=== PATIENT | male | born 1950 | race Caucasian/White ===

== ENCOUNTER 2016-08-13 12:47 | Outpatient (CLI) | payer MEDICARE | END 2016-08-13 12:48 | disposition home or self-care (01) | DX: Z79.4 Long term (current) use of insulin (principal); E11.51 Type 2 diabetes mellitus with diabetic peripheral angiopathy without gangrene; E78.5 Hyperlipidemia, unspecified; I25.10 Atherosclerotic heart disease of native coronary artery without angina pectoris; I10 Essential (primary) hypertension; D64.9 Anemia, unspecified | CPT/HCPCS: 36415; 80053; 80061; 82043; 83036; 85025; G0103 ==

== ENCOUNTER 2017-01-26 12:52 | Outpatient (CLI) | payer MEDICARE | END 2017-01-26 12:53 | disposition short-term general hospital (02) | LOC: EMS 12:52 | PROVIDERS: ATTEND Surgery | DX: K62.5 Hemorrhage of anus and rectum (principal); R53.1 Weakness; R55 Syncope and collapse; R61 Generalized hyperhidrosis | CPT/HCPCS: A0425; A0427 ==

== ENCOUNTER 2017-04-11 13:17 | Outpatient (CLI) | payer MEDICARE ==
[2017-04-11 17:57] LABS: BASOPHILS # (AUTO) 0.1 10^3/uL (0.0-0.1); BASOPHILS % (AUTO) 1.2 %; EOSINOPHILS # (AUTO) 0.2 10^3/uL (0.0-0.7); EOSINOPHILS % (AUTO) 3.1 %; HCT - HEMATOCRIT 44.7 % (42.0-52.0); HGB - HEMOGLOBIN 14.3 g/dL (14.0-18.0); LYMPHOCYTES # (AUTO) 2.1 10^3/uL (1.5-3.5); MEAN CORPUSCULAR HEMOGLOBIN 31.2 pg (27.0-31.0); MEAN CORPUSCULAR VOLUME 97.4 fL (80.0-94.0); MEAN PLATELET VOLUME 8.8 fL (7.4-11.4); MONOCYTES # (AUTO) 0.7 10^3/uL (0.0-1.0); NEUTROPHILS # (AUTO) 3.4 10^3/uL (1.5-6.6); NEUTROPHILS % (AUTO) 52.7 %; RED BLOOD COUNT 4.59 10^6/uL (4.70-6.10); RED CELL DISTRIBUTION WIDTH 14.6 % (12.0-15.0); UNCORRECTED WHITE BLOOD COUNT 6.5 x10^3/uL; WHITE BLOOD COUNT 6.5 x10^3/uL (4.8-10.8)
[2017-04-11 18:22] LABS: BILIRUBIN,TOTAL 0.3 mg/dL (0.2-1.0); BUN - BLOOD UREA NITROGEN 14 mg/dL (6-20); CALCIUM 8.5 mg/dL (8.5-10.3); CARBON DIOXIDE - CO2 31 mmol/L (21-32); CHLORIDE 100 mmol/L (101-111); CHOLESTEROL 203 mg/dL; CREATININE 0.6 mg/dL (0.6-1.2); GFR - MDRD 134 (>89); GLUCOSE 99 mg/dL (70-100); HDL CHOLESTEROL 68 mg/dL; LDL/HDL RATIO 1.7 (<3.6); POTASSIUM 3.9 mmol/L (3.5-5.0); SODIUM 139 mmol/L (135-145); TOTAL PROTEIN 6.9 g/dL (6.7-8.2); TRIGLYCERIDES 83 mg/dL; VLDL CHOLESTEROL 17 mg/dL
[2017-04-11 21:27] LABS: HEMOGLOBIN A1C 0.65 g/dL
== END 2017-04-11 13:18 | disposition home or self-care (01) ==
LOC: LAB.F 13:17
PROVIDERS: ATTEND Family Medicine
DX: E11.51 Type 2 diabetes mellitus with diabetic peripheral angiopathy without gangrene (principal); I25.10 Atherosclerotic heart disease of native coronary artery without angina pectoris; D64.9 Anemia, unspecified; I10 Essential (primary) hypertension
CPT/HCPCS: 36415; 80053; 80061; 83036; 85025

== ENCOUNTER 2017-09-05 08:44 | Outpatient (CLI) | payer MEDICARE ==
[2017-09-05 10:59] LABS: HB2 TOTAL 15.9 g/dL; HEMOGLOBIN A1C 0.77 g/dL; HEMOGLOBIN A1C % 6.6 % (4.6-6.2)
[2017-09-05 11:03] LABS: ALBUMIN 3.5 g/dL (3.2-5.5); ALKALINE PHOSPHATASE 59 IU/L (42-121); ALT ALANINE AMINOTRANSFERASE 22 IU/L (10-60); AST ASPARTATE AMINOTRANSFERASE 22 IU/L (10-42); BILIRUBIN,TOTAL 0.6 mg/dL (0.2-1.0); BUN - BLOOD UREA NITROGEN 13 mg/dL (6-20); CALCIUM 8.5 mg/dL (8.5-10.3); CARBON DIOXIDE - CO2 28 mmol/L (21-32); CHLORIDE 104 mmol/L (101-111); CHOL/HDL RATIO 4.2 (<5.0); CHOLESTEROL 221 mg/dL; CREATININE 0.5 mg/dL (0.6-1.2); GFR - MDRD 165 (>89); GLUCOSE 112 mg/dL (70-100); HDL CHOLESTEROL 53 mg/dL; LDL CHOLESTEROL,CALCULATED 156 mg/dL; LDL/HDL RATIO 2.9 (<3.6); SODIUM 139 mmol/L (135-145); TOTAL PROTEIN 6.9 g/dL (6.7-8.2); VLDL CHOLESTEROL 12 mg/dL
== END 2017-09-05 08:45 | disposition home or self-care (01) ==
LOC: LAB.F 08:44
PROVIDERS: ATTEND Family Medicine
DX: I10 Essential (primary) hypertension (principal); E11.51 Type 2 diabetes mellitus with diabetic peripheral angiopathy without gangrene; E78.5 Hyperlipidemia, unspecified; I25.10 Atherosclerotic heart disease of native coronary artery without angina pectoris
CPT/HCPCS: 36415; 80053; 80061; 83036; 83721

== ENCOUNTER 2019-11-26 00:15 | Emergency (ER) | payer MEDICARE, OTHER ==
[2019-11-26 00:31] VITALS: BP 137/75
--- NOTE | 2019-11-26 01:18 | ED Physician Documentation ---
PD HPI UPPER EXT INJURY - Stated complaint Stated Complaint: R ARM LAC - Chief complaint Chief Complaint: Trauma Hd/Nk - History obtained from History obtained from: Patient - History of Present Illness Location: Right, Forearm Type of injury: Fall Where injury occurred: Home Timing - onset: Enter time (23:00), Today Timing - details: Abrupt onset Pain level max: 4 Pain level now: 4 (back) Improved by: Rest Worsened by: Moving Associated symptoms: No: Weakness, Numbness, Tingling, Swelling, Discolored Contributing factors: Anticoagulated (plavix) Recently seen: Not recently seen - Additonal information Additional information: patient missed the bed when trying to get into bed, struck RUE on side table, causing RUE laceration. he also hit his head on the side table but denies LOC, denies ROBLEDO. Review of Systems Eyes: reports: Reviewed and negative Cardiac: reports: Reviewed and negative Respiratory: reports: Reviewed and negative Skin: reports: Laceration (s) Musculoskeletal: reports: Back pain, Extremity pain Neurologic: reports: Head injury. denies: Generalized weakness, Focal weakness, Numbness, Confused, Altered mental status, Unresponsive, Headache, LOC PD PAST MEDICAL HISTORY - Past Medical History Cardiovascular: Hypertension, High cholesterol, [place] Respiratory: None Endocrine/Autoimmune: Type 2 diabetes GI: GERD : None HEENT: None Psych: Depression Musculoskeletal: Osteoarthritis Derm: None - Past Surgical History Past Surgical History: Yes - Present Medications Home Medications: Ambulatory Orders Medication Instructions Recorded Confirmed Aspirin [Aspir-Low] 81 mg PO DAILY 11/27/15 03/19/16 Carvedilol 6.25 mg PO BID 11/27/15 03/19/16 Ferrous Sulfate [Iron Supplement] 1 tab PO BID 11/27/15 03/19/16 Insulin Glargine,Hum.rec.anlog 26 units SQ DAILY 11/27/15 03/19/16 [Lantus] Naproxen 375 mg PO BID #20 tablet 11/27/15 03/19/16 PARoxetine HCl [Paxil] 40 mg PO DAILY 11/27/15 03/19/16 Zolpidem [Ambien] 10 mg PO QPM 11/27/15 03/19/16 lisinopriL [Lisinopril] 2.5 mg PO DAILY 11/27/15 03/19/16 Azelastine HCl 1 spray JEFF BID 03/19/16 03/19/16 Insulin Regular, Human [Humulin R] 5 - 10 unit SQ DAILY PRN 03/19/16 03/19/16 Oxycodone HCl/Acetaminophen 1 tab PO BID PRN 03/19/16 03/19/16 [Oxycodone-Acetaminophen 5-325] methocarbamoL [Methocarbamol] 500 mg PO Q6H PRN 03/19/16 03/19/16 Nicotine 21 mg Patch [Nicoderm] 1 patch TOP DAILY #14 patch 03/20/16 - Allergies Allergies/Adverse Reactions: Allergies Allergy/AdvReac Type Severity Reaction Status Date / Time yeast, dried [yeast] Allergy Unknown Verified 11/26/19 00:24 - Social History Does the pt smoke?: Yes Smoking Status: Current every day smoker Does the pt drink ETOH?: Yes Does the pt have substance abuse?: No - Immunizations Immunizations are current?: Yes PD ED PE NORMAL - Vitals Vital signs reviewed: Yes - General General: Alert and oriented X 3, No acute distress, Well developed/nourished - HEENT HEENT: Atraumatic, PERRL, EOMI, Moist mucous membranes - Neck Neck: No bony TTP - Cardiac Cardiac: RRR, No murmur - Respiratory Respiratory: No respiratory distress, Clear bilaterally - Abdomen Abdomen: Soft, Non tender - Extremities Extremities: Normal ROM s pain, No edema - Neuro Neuro: Alert and oriented X 3, 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 LTS intact RUE with brisk distal capillary refill and FROM including flex/ext/supination/pronation) LENY UE/Hands Visual: 1 - laceration (8 cm laceration that is contiguous with a distal skin tear which is another 6 cm in length) Results - Vitals Vitals: Oxygen O2 Source Room air Procedures - Laceration (location) Upper extremity right Ventral Length in cm: 8 Wound type: Linear, Into subcut fat Neurovascular status: Sensory intact, Motor intact, Vascular intact Tendon involvement: Tendon intact Anesthesia: Lidocaine 1% Wound Preparation: Chlorhexadine, Irrigated copiously NS, Wound explored, To the base. No: FB identified Skin layer closure: Running Other: Patient tolerated well, No complications, Tetanus UTD Complexity: Simple PD MEDICAL DECISION MAKING - ED course Complexity details: reviewed results, re-evaluated patient, considered differential, d/w patient, d/w family Departure - Departure Disposition: 01 Home, Self Care Clinical Impression: Laceration Condition: Good Instructions: ED Laceration Ext Sutr Stap Tape Follow-Up: ASPEN HOLLOWAY MD [Primary Care Provider] - (follow up in 7-10 days for removal of the stitches ) Discharge Date/Time: 11/26/19 04:17
[2019-11-26] MEDS: oxyCODONE 5 MG TABLET PO STA (01:57)
[2019-11-26] MEDS: LIDOCAINE 1% 2 ML VIAL SUBQ STA (03:22)
[2019-11-26] MEDS: BACITRACIN ZINC OINT 1 PACKET TOP STA (04:14)
== END 2019-11-26 04:17 | disposition home or self-care (01) ==
LOC: ED 00:15
DX: S51.811A Laceration without foreign body of right forearm, initial encounter (principal); S09.90XA Unspecified injury of head, initial encounter; W06.XXXA Fall from bed, initial encounter; W22.8XXA Striking against or struck by other objects, initial encounter; Y92.003 Bedroom of unspecified non-institutional (private) residence as the place of occurrence of the external cause; Z79.02 Long term (current) use of antithrombotics/antiplatelets; Z79.82 Long term (current) use of aspirin; E11.9 Type 2 diabetes mellitus without complications; Z79.4 Long term (current) use of insulin; I10 Essential (primary) hypertension; F17.200 Nicotine dependence, unspecified, uncomplicated
CPT/HCPCS: 12004; 99282; A9270

== ENCOUNTER 2020-02-14 11:13 | Outpatient (CLI) | payer MEDICARE, OTHER | END 2020-02-14 11:14 | disposition home or self-care (01) | LOC: LAB.S 11:13 | PROVIDERS: ATTEND Internal Medicine Gastroenterology | DX: Z53.9 Procedure and treatment not carried out, unspecified reason (principal) ==

== ENCOUNTER 2020-02-18 08:00 | Outpatient (CLI) | payer MEDICARE, OTHER | END 2020-02-18 23:59 | disposition home or self-care (01) | LOC: LAB.R 08:00 | PROVIDERS: ATTEND Internal Medicine Gastroenterology | DX: R19.7 Diarrhea, unspecified (principal) | CPT/HCPCS: 87493 ==

== ENCOUNTER 2020-06-09 18:56 | Outpatient (CLI) | payer MEDICARE, OTHER | END 2020-06-09 18:57 | disposition EMS.NT | LOC: EMS 18:56 | PROVIDERS: ATTEND Surgery | DX: S81.812A Laceration without foreign body, left lower leg, initial encounter (principal); S81.811A Laceration without foreign body, right lower leg, initial encounter; S09.90XA Unspecified injury of head, initial encounter; W01.10XA Fall on same level from slipping, tripping and stumbling with subsequent striking against unspecified object, initial encounter; Y93.01 Activity, walking, marching and hiking; Y92.009 Unspecified place in unspecified non-institutional (private) residence as the place of occurrence of the external cause ==

== ENCOUNTER 2020-10-09 18:30 | Outpatient (CLI) | payer MEDICARE, OTHER | END 2020-10-09 18:31 | disposition EMS.NT | LOC: EMS 18:30 | DX: Z03.89 Encounter for observation for other suspected diseases and conditions ruled out (principal) ==

== ENCOUNTER 2021-01-07 00:38 | Outpatient (CLI) | payer MEDICARE, OTHER | END 2021-01-07 00:39 | disposition critical access hospital (66) | LOC: EMS 00:38 | DX: I46.9 Cardiac arrest, cause unspecified (principal) | CPT/HCPCS: A0425; A0433 ==

== ENCOUNTER 2021-01-07 01:03 | Emergency (ER) | payer MEDICARE, OTHER ==
[2021-01-07] MEDS ORDERED: EPINEPHrine ABBOJECT 1 MG/10 ML SYRINGE IVP ONE (01:04)
[2021-01-07] MEDS ORDERED: AMIODARONE 360 MG/200 ML 200 ML IV ONE ×2 (01:18→01:20)
[2021-01-07] MEDS ORDERED: SODIUM CHLORIDE 0.9% 1,000 ML IV STA (01:18)
[2021-01-07] MEDS ORDERED: AMIODARONE 150 MG/3 ML VIAL ONE (01:19)
[2021-01-07] MEDS ORDERED: AMIODARONE 150 MG/100 ML 100 ML IV ONE (01:20)
[2021-01-07 01:27] LABS: BASOPHILS % (AUTO) 0.7 %; EOSINOPHILS % (AUTO) 1.2 %; HGB - HEMOGLOBIN 14.8 g/dL (14.0-18.0); LYMPHOCYTES % (AUTO) 24.1 %; MEAN CORPUSCULAR HEMOGLOBIN 34.7 pg (27.0-31.0); MEAN CORPUSCULAR HGB CONC 30.8 g/dL (32.0-36.0); MEAN CORPUSCULAR VOLUME 112.4 fL (80.0-94.0); MEAN PLATELET VOLUME 8.4 fL (7.4-11.4); MONOCYTES % (AUTO) 5.9 %; PLT - PLATELET COUNT 224 10^3/uL (130-450); RED BLOOD COUNT 4.27 10^6/uL (4.70-6.10); RED CELL DISTRIBUTION WIDTH 13.2 % (12.0-15.0); WHITE BLOOD COUNT 15.2 x10^3/uL (4.8-10.8)
[2021-01-07 01:31] LABS: ABNORMAL LYMPHS % (MANUAL) 0 %
--- NOTE | 2021-01-07 01:33 | ED Physician Documentation ---
PD HPI CPR - Stated complaint Stated Complaint: CPR - Chief complaint Chief Complaint: Cardiac - History obtained from History obtained from: Family, EMS - Additional information Additional information: Patient is brought to the emergency department by EMS for chief complaint of cardiac arrest. The patient according to had made himself a late night snack of bread and butter which she had apparently already eaten when he came to bed. states that the patient uses a CPAP machine normally, but after getting into bed, got up to walk to the bathroom, where she heard him fall to the floor. states she immediately ran to the bathroom and found patient on the floor not breathing. She called 911 and then began chest compressions. states she estimates that the medics got there in about 5 minutes after her calling at which time they took over CPR. Medics state with that when they arrived, the patient was in PEA, though he does have a pacemaker which was working at the time. They did CPR for about 30 additional minutes with multiple rounds of epinephrine and 300 mg dose of amiodarone, after which time they did achieve return of pulses. This lasted for about 15 minutes after which the patient arrested again. CPR was resumed with more rounds of epinephrine for a total of 8 rounds of epinephrine prior to patient's arrival. CPR was continued to be in progress, due to failure of return of spontaneous circulation again. states that the patient had a history of COPD and sleep apnea and uses CPAP machine at night. Medics report that when they intubated the patient, copious gastric contents had to be suctioned out of the patient's airway, though they did state that they were getting good breaths and good breath sounds after intubation. They state that his pupils have been fixed and dilated during the entire time he has been in their care. Even when he had return of vital signs, they state that he was not responsive to verbal or tactile stimuli, and his pupils continued nonreactive. The patient is unresponsive and unable to offer any information. Review of Systems Unable to obtain: Unresponsive, Intubated PD PAST MEDICAL HISTORY - Past Medical History Cardiovascular: Hypertension, High cholesterol, [place] Respiratory: None Endocrine/Autoimmune: Type 2 diabetes GI: GERD : None HEENT: None Psych: Depression Musculoskeletal: Osteoarthritis Derm: None - Past Surgical History Past Surgical History: Yes - Present Medications Home Medications: Ambulatory Orders Medication Instructions Recorded Confirmed Aspirin [Aspir-Low] 81 mg PO DAILY 11/27/15 03/19/16 Carvedilol 6.25 mg PO BID 11/27/15 03/19/16 Ferrous Sulfate [Iron Supplement] 1 tab PO BID 11/27/15 03/19/16 Insulin Glargine,Hum.rec.anlog 26 units SQ DAILY 11/27/15 03/19/16 [Lantus] Naproxen 375 mg PO BID #20 tablet 11/27/15 03/19/16 PARoxetine HCl [Paxil] 40 mg PO DAILY 11/27/15 03/19/16 Zolpidem [Ambien] 10 mg PO QPM 11/27/15 03/19/16 lisinopriL [Lisinopril] 2.5 mg PO DAILY 11/27/15 03/19/16 Azelastine HCl 1 spray JEFF BID 03/19/16 03/19/16 Insulin Regular, Human [Humulin R] 5 - 10 unit SQ DAILY PRN 03/19/16 03/19/16 Oxycodone HCl/Acetaminophen 1 tab PO BID PRN 03/19/16 03/19/16 [Oxycodone-Acetaminophen 5-325] methocarbamoL [Methocarbamol] 500 mg PO Q6H PRN 03/19/16 03/19/16 Nicotine 21 mg Patch [Nicoderm] 1 patch TOP DAILY #14 patch 03/20/16 - Allergies Allergies/Adverse Reactions: Allergies Allergy/AdvReac Type Severity Reaction Status Date / Time yeast, dried [yeast] Allergy Unknown Verified 11/26/19 00:24 - Social History Does the pt smoke?: Yes Smoking Status: Current every day smoker Does the pt drink ETOH?: Yes Does the pt have substance abuse?: No - Immunizations Immunizations are current?: Yes PD ED PE NORMAL - Vitals Vital signs reviewed: Yes - General General: Other (Unresponsive patient intubated, with CPR in progress.) - HEENT HEENT: Other (Pupils fixed and dilated.) - Cardiac Cardiac: Other (Pulses and heart tones absent.) - Respiratory Respiratory: Other (No spontaneous respirations. Lungs clear with bagging.) - Derm Derm: Warm and dry - Extremities Extremities: No deformity - Neuro Neuro: Other (No signs of neurologic activity whatsoever) Results - Vitals Vitals: Oxygen O2 Source Room air - Labs Labs: Laboratory Tests 01/07/21 01/07/21 01/07/21 01:20 01:20 01:20 WBC 15.2 H RBC 4.27 L Hgb 14.8 Hct 48.0 MCV 112.4 H MCH 34.7 H MCHC 30.8 L RDW 13.2 Plt Count 224 MPV 8.4 Neut # (Auto) Not Reportable Lymph # (Auto) Not Reportable [place] # (Auto) Not Reportable Eos # (Auto) Not Reportable Baso # (Auto) Not Reportable Absolute Nucleated RBC Not Reportable Total Counted 100 Band Neuts % (Manual) 5 Abnorm Lymph % (Manual) 0 Metamyelocytes % 2 H Myelocytes % 4 H Nucleated RBC % Not Reportable Neutrophils # (Manual) 10.6 H Lymphocytes # (Manual) 2.7 Monocytes # (Manual) 0.9 Eosinophils # (Manual) 0.0 Basophils # (Manual) 0.0 Differential Comment MANUAL DIFFERENTIAL Platelet Estimate NORMAL (130-450,000) RBC Morph Micro Appear NORMAL APPEARANCE D-Dimer > 1050.0 H Sodium 141 Potassium 3.8 Chloride 102 Carbon Dioxide 16 L Anion Gap 23.0 H BUN 14 Creatinine 0.9 Estimated GFR (MDRD) 83 L Glucose 169 H Calcium 8.1 L Total Bilirubin 0.6 AST 155 H ALT 85 H Alkaline Phosphatase 102 Troponin I High Sens Total Protein 6.4 L Albumin 3.1 L Globulin 3.3 Albumin/Globulin Ratio 0.9 L Lipase 79 H 01/07/21 01:20 WBC RBC Hgb Hct MCV MCH MCHC RDW Plt Count MPV Neut # (Auto) Lymph # (Auto) [place] # (Auto) Eos # (Auto) Baso # (Auto) Absolute Nucleated RBC Total Counted Band Neuts % (Manual) Abnorm Lymph % (Manual) Metamyelocytes % Myelocytes % Nucleated RBC % Neutrophils # (Manual) Lymphocytes # (Manual) Monocytes # (Manual) Eosinophils # (Manual) Basophils # (Manual) Differential Comment Platelet Estimate RBC Morph Micro Appear D-Dimer Sodium Potassium Chloride Carbon Dioxide Anion Gap BUN Creatinine Estimated GFR (MDRD) Glucose Calcium Total Bilirubin AST ALT Alkaline Phosphatase Troponin I High Sens 230.8 H* Total Protein Albumin Globulin Albumin/Globulin Ratio Lipase PD MEDICAL DECISION MAKING - ED course Complexity details: d/w family ED course: CPR was continued upon patient's arrival in the emergency department and patient was given 1 more milligram of epinephrine. As I was speaking with the patient's , we did achieve return of pulses and so CPR was stopped. The patient had come in with a single IO line in the right tibia, and an 18-gauge peripheral IV was placed. The patient was not responsive after return of vital signs, but did maintain pulses for approximately 10 minutes. During this time, he was given a another bolus of amiodarone 150 mg and started on an amiodarone drip. I spoke with the patient's and informed her that the patient's prognosis was very grave after requiring an hour of resuscitative efforts, and that it was very likely that he would descend into cardiac arrest again. We had a POLST from 2018 for the patient that stated full code, but in talking to the , she stated that based on conversations they have had in the past, recently, she does not think the patient would want all of this done, particularly since he will most likely have a poor outcome neurologically. We did talk together and ultimately it was decided that should the patient arrest again, we would not plan to undergo further efforts. The patient continued to have a paced rhythm for several more minutes, but it was noticed that he was beginning to appear dusky again. We also at the same time were having trouble picking up the pulse ox. His carotid pulses were checked and found to be absent. At this point in time, I discussed with the that the patient has arrested again, despite constant stimulation from his pacemaker and despite good oxygenation and appropriate medication administration. She did agree that we should stop resuscitative efforts and the patient was pronounced at 0127. Departure - Departure Disposition: 20 Clinical Impression: Cardiac arrest Condition: Critical Discharge Date/Time: 01/07/21 03:51
[2021-01-07 01:41] LABS: BILIRUBIN,TOTAL 0.6 mg/dL (0.2-1.0); CALCIUM 8.1 mg/dL (8.5-10.3); CREATININE 0.9 mg/dL (0.6-1.2); POTASSIUM 3.8 mmol/L (3.5-5.0)
[2021-01-07 01:42] LABS: ALBUMIN 3.1 g/dL (3.2-5.5); ALBUMIN/GLOBULIN RATIO 0.9 (1.0-2.2); TOTAL PROTEIN 6.4 g/dL (6.7-8.2)
[2021-01-07 02:07] LABS: BAND NEUTROPHILS % (MANUAL) 5 %; DIFFERENTIAL COMMENT MANUAL DIFFERENTIAL; LYMPHOCYTES # (MANUAL) 2.7 10^3/uL (1.5-3.5); LYMPHOCYTES % (MANUAL) 18 %; METAMYELOCYTES % (MANUAL) 2 %; MONOCYTES # (MANUAL) 0.9 10^3/uL (0.0-1.0); MYELOCYTES % (MANUAL) 4 %; NEUTROPHILS # (MANUAL) 10.6 10^3/uL (1.5-6.6); PLATELET ESTIMATE, MANUAL NORMAL (130-450,000) (NORMAL); RBC MORPHOLOGY (MULTIPLE) NORMAL APPEARANCE (NORMAL)
[2021-01-07] MEDS ORDERED: EPINEPHrine 1 MG/ML AMP IVP STA ×2 (02:29→02:31)
[2021-01-07] MEDS ORDERED: AMIODARONE 150 MG/3 ML VIAL IVP STA (02:30)
== END 2021-01-07 01:27 | disposition expired ==
LOC: EDUNIT# → ED 01:03
DX: I46.9 Cardiac arrest, cause unspecified (principal); F17.200 Nicotine dependence, unspecified, uncomplicated
CPT/HCPCS: 36415; 80053; 83690; 84484; 85025; 85379; 92950; 93005; 96374; 96375; 99281; 99291; 99292; J0282